=== PATIENT | female | born 1990 ===

== ENCOUNTER 2018-06-28 02:34 | Emergency (ER) | payer OTHER ==
--- NOTE | 2018-06-28 04:08 | C.PDOC ---
History Of Present Illness 27 year old female presents to the ER after she tripped on a rug in the bathroom and jammed her right foot against the tub. Patient states she felt a crack in the right ankle. She is currently unable to bear weight. Denies weakness or numbness. Time Seen by Provider: 06/28/18 02:54 Chief Complaint (Nursing): Lower Extremity Problem/Injury History Per: Patient History/Exam Limitations: no limitations Onset/Duration Of Symptoms: Hrs Current Symptoms Are (Timing): Still Present Recent travel outside of the [place]: No - Ankle/Foot Description Of Injury: Struck Against Object Currently Unable To: Bear Weight Past Medical History Reviewed: Historical Data, Nursing Documentation, Vital Signs Vital Signs: Last Vital Signs Temp 98.4 F 06/28/18 02:43 Pulse 67 06/28/18 02:43 Resp 20 06/28/18 02:43 BP 119/81 06/28/18 02:43 Pulse Ox 100 06/28/18 02:43 - Medical History PMH: Hypothyroidism Family History: States: No Known Family Hx - Social History Hx Alcohol Use: Yes Hx Substance Use: No - Immunization History Hx Tetanus Toxoid Vaccination: No Hx Pneumococcal Vaccination: No Review Of Systems Musculoskeletal: Positive for: Foot Pain Neurological: Negative for: Weakness, Numbness Physical Exam - Physical Exam Appears: Non-toxic Skin: Normal Color, Warm, Dry Head: Atraumatic, Normacephalic Eye(s): bilateral: Normal Inspection Extremity: Normal ROM (limited ), Capillary Refill (<2 seconds), Swelling, Other (swelling and moderate tenderness to bilateral malleoli with lateral deviation of food) Pulses: Left Dorsalis Pedis: Normal, Right Dorsalis Pedis: Normal Neurological/Psych: Oriented x3, Normal Motor, Normal Sensation Gait: Unable To Assess ED Course And Treatment O2 Sat by Pulse Oximetry: 100 (room air) Pulse Ox Interpretation: Normal - Other Rad Right ankle x-ray X-Ray: Interpreted by Me, Viewed By Me Interpretation: Comminuted fracture of distal fibula with dislocation of the ankle Progress Note: X-ray was positive for fracture, discussed with podiatry resident who will come evaluate patient. Podiatry resident performed closed reduction in the ER, patient placed in splint, given crutches with instructions, and given podiatry follow up information with Dr Phipps in 1 week. Disposition - Disposition Referrals: Heidi Phipps DPM [Staff Provider] - Disposition: HOME/ ROUTINE Disposition Time: 06:12 Condition: STABLE Additional Instructions: Elevate leg / Apply ICE to area Take medication as directed for pain Please follow up with dr Phipps on tuesday as instructed/ Call office to confirm Return to ER if worse Prescriptions: Ibuprofen [Motrin Tab] 800 mg PO QID #24 tab oxyCODONE/Acetaminophen [Percocet 5/325 mg Tab] 1 tab PO PRN PRN #10 tab PRN Reason: Pain Instructions: Ankle Fracture (DC) Forms: [employer] ([place]an), Work Excuse - Clinical Impression Clinical Impression: Closed right ankle fracture, Dislocation of ankle, right, closed - PA / CLOTH SANDER / Resident Statement MD/DO has reviewed & agrees with the documentation as recorded. - Scribe Statement The provider has reviewed the documentation as recorded by the Scribe Oleg Martinez All medical record entries made by the Scribe were at my direction and personally dictated by me. I have reviewed the chart and agree that the record accurately reflects my personal performance of the history, physical exam, medical decision making, and the department course for this patient. I have also personally directed, reviewed, and agree with the discharge instructions and disposition.
[2018-06-28] MEDS ORDERED: Lidocaine 1% Inj (20ml) INFIL ONE (05:25)
[2018-06-28] MEDS ORDERED: Lidocaine Hydrochloride 5 ML INJ ONE (05:33)
[2018-06-28] MEDS ORDERED: Lidocaine 2% MPF (5 ml) Inj ONE (05:39)
[2018-06-28 06:59] VITALS: PULSE 89; O2SAT 98
[2018-06-28 07:00] VITALS: BP 144/78; RESP 18; TEMP 98.2
--- NOTE | 2018-06-28 12:00 | RAD ---
PROCEDURE: Right Ankle Radiographs. HISTORY: pain twisting injury COMPARISON: No prior FINDINGS: Comminuted oblique displaced fracture of the distal fibula. Disruption of the ankle mortise. Widening of the medial gutter. Extensive soft tissue swelling. No evidence of radiopaque foreign body. IMPRESSION: Comminuted oblique displaced fracture of the distal fibula. Disruption of the ankle mortise. Widening of the medial gutter. Extensive soft tissue swelling.
--- NOTE | 2018-06-28 12:08 | RAD ---
PROCEDURE: Right Ankle Radiographs. HISTORY: closed reduction COMPARISON: Right ankle radiograph performed earlier the same day. FINDINGS: Mildly improved alignment of comminuted distal fibular fracture. Improved alignment of the ankle mortise. Extensive soft tissue swelling. No evidence of radiopaque foreign body. Interval placement of a cast. IMPRESSION: Postreduction images with interval improvement in alignment as above.
--- NOTE | 2018-06-28 12:35 | RAD ---
Date of service: 06/28/2018 PROCEDURE: Right Ankle Radiographs. HISTORY: Follow-up COMPARISON: 06/28/2018 FINDINGS: BONES: Stable position of major fracture fragments oblique distal right fibular fracture. JOINTS: Normal. No osteoarthritis. Ankle mortise maintained. Talar dome intact SOFT TISSUES: Normal. OTHER FINDINGS: None. IMPRESSION: No significant interval change compared to the prior examination(s). Limitations of the current study: Detail obscured by overlying fiberglass cast.
--- NOTE | 2018-06-28 17:08 | CP.PCM.CON ---
History of Present Illness - History of Present Illness History of Present Illness: Podiatry consult note for Dr. Phipps, 27 year old female with no PMHx presents to the ER after she tripped on a rug in the bathroom and jammed her right foot against the tub. Patient states she felt a crack in the right ankle and was immediately unable to bear weight on the right ankle. Patient denies any burning, numbness or tingling to the foot. Denies f/n/v/sob. Pmhx: none Pshx: none Allergies: none Social history: denies smoking cigarettes; social drinker denies use of illicit drugs Past Patient History - Past Social History Smoking Status: Never Smoked - ENDOCRINE/METABOLIC Hx Hypothyroidism: Yes - PSYCHIATRIC Hx Substance Use: No Meds Home Medications: Home Medication List Medication Instructions Recorded Confirmed Type Ibuprofen [Motrin Tab] 800 mg PO QID #24 tab 06/28/18 Rx oxyCODONE/Acetaminophen [Percocet 1 tab PO PRN PRN #10 tab 06/28/18 Rx 5/325 mg Tab] Allergies/Adverse Reactions: Allergies Allergy/AdvReac Type Severity Reaction Status Date / Time No Known Allergies Allergy Unverified 06/28/18 02:49 Physical Exam - Constitutional Appears: Well, Non-toxic, No Acute Distress - Head Exam Head Exam: ATRAUMATIC - Extremities Exam Additional comments: Right lower extremity exam: Vascular: DP/PT 2/4 b/l, CFT <3, TG warm to warm, minimal erythema surrounding the ankle joint, edema noted perimalleolarly derm: no IDM, no open lesions, no clinical signs of infection. neuro: protective sensation intact via ipswich 4/4 ortho: pain on palpation to the ankle joint, no pain on palpation to the gastroc or achilles tendon, no pain on palpation to the base of fifth met, no gross dislocation noted. Results - Vital Signs Recent Vital Signs: Last Vital Signs Temp 98.2 F 06/28/18 06:59 Pulse 89 06/28/18 06:59 Resp 18 06/28/18 06:59 BP 144/78 06/28/18 06:59 Pulse Ox 98 06/28/18 06:59 Assessment & Plan - Assessment and Plan (Free Text) Assessment: 27 yo female seen and evaluated for dislocation of the right ankle with comminuted fracture of the fibula Plan: Patient seen and evaluated Chart, labs and vitals reviewed Right ankle x-rays reviewed; dislocation of the right ankle noted with comminuted fracture of the fibula Patient educated on risks and benefits of closed reduction Patient consents to closed reduction of the ankle joint; all questions answered 5 cc of 2% lidocaine injected to common peroneal nerve, and 10 cc of 2% lidocaine plain injected into the ankle joint Ankle closed reduced and confirmed with post closed reduction x-rays Well padded AO splint applied to the right leg Advised to stay nonweight bearing take pain medications prn ambulate with the use of crutches Ice and elevate Patient to follow up with Dr. Phipps in her office next Tuesday (07/05) Patient showed verbal understanding Thank you for the consult
== END 2018-06-28 06:59 | disposition home or self-care (01) ==
LOC: C.ER 02:34
DX: S82.451A Displaced comminuted fracture of shaft of right fibula, initial encounter for closed fracture (principal); W01.198A Fall on same level from slipping, tripping and stumbling with subsequent striking against other object, initial encounter; Y92.002 Bathroom of unspecified non-institutional (private) residence as the place of occurrence of the external cause
CPT/HCPCS: 27788; 73610; 96372; 99284; J2270